=== PATIENT | female | born 1985 | race Caucasian/White ===

== ENCOUNTER 2022-01-25 11:57 | Emergency (ER) | payer BC, SELFPAY ==
[2022-01-25 12:11] VITALS: BP 126/80; PULSE 118; RESP 18; TEMP 36.3; O2SAT 98
--- NOTE | 2022-01-25 12:46 | ED.URI ---
HPI - URI/Sore Throat General Chief Complaint: Upper Respiratory Infection Stated Complaint: Sore Throat,Headache,Body Aches Time Seen by Provider: 01/25/22 12:26 Source: patient Mode of arrival: ambulatory Limitations: no limitations History of Present Illness HPI Narrative: Patient presents today complaining of fever up to 102, sore throat cough body aches chills, cough, congestion, fatigue. States any food she eats is tasting like garbage or plastic. She has been taking Mucinex some relief. States her son, who is autistic, has been sick for the last couple of days with possible COVID exposure. She has been vaccinated against COVID-19. Related Data Home Medications Medication Instructions Recorded Confirmed lamotrigine 100 mg tablet 100 mg PO DAILY 01/25/22 01/25/22 quetiapine 50 mg tablet 50 mg PO DAILY 01/25/22 01/25/22 quetiapine 50 mg tablet 50 mg PO HS 01/25/22 01/25/22 Allergies Allergy/AdvReac Type Severity Reaction Status Date / Time No Known Drug Allergies Allergy Unknown Unknown Verified 01/25/22 12:29 Review of Systems Review of Systems: CONSTITUTIONAL: Denies sweats.+ body aches, fever, chills, fatigue EYES: Denies visual changes, redness, or discharge. ENT: Denies rhinorrhea,or otalgia.+ congestion, sore throat CARDIOVASCULAR: Denies chest pain, palpitations, or edema. RESPIRATORY: Denies dyspnea.+ cough GASTROINTESTINAL: Denies abdominal pain, nausea, vomiting, or diarrhea. GENITOURINARY: Denies dysuria or hematuria. SKIN: Denies rash, itching, or wounds. MUSCULOSKELETAL: Denies back pain, joint pain, or myalgia. NEUROLOGIC: Denies headache, numbness, tingling, or weakness. PSYCH: Denies depression or anxiety. PMFSH Social History Social History Smoking status: Never smoker Alcohol intake: current Comments At time of signature, I have reviewed and agree with nursing past medical, surgical, social and family history unless otherwise noted. Please see nursing chart for further information. There is no relevant family history pertinent to the presenting complaint Exam Narrative: GENERAL: Mildly ill-appearing, well-nourished, and in no acute distress. HEAD: Normocephalic, atraumatic. EYES: EOMI. No redness or drainage. Conjunctivae normal. ENT: Mucous membranes pink and moist. Nares clear. No rhinorrhea. TMs normal bilaterally. Throat normal. Uvula midline. NECK: Normal AROM. Supple. No lymphadenopathy. CHEST: No respiratory distress. Clear to auscultation. HEART: Regular rate and rhythm. No murmur appreciated. Normal peripheral pulses. EXTREMITIES: Normal range of motion. No edema. SKIN: Warm, dry, no rash. Capillary refill normal. Normal skin turgor. NEURO: No focal deficits. Alert and oriented x3. Gait steady. PSYCH: Normal affect. No signs of depression or anxiety. Course Course Level of Care: Express Care Visit Vital Signs Vital signs: Vital Signs Temperature 97.4 F L 01/25/22 12:11 Pulse Rate 118 H 01/25/22 12:11 Respiratory Rate 18 01/25/22 12:11 Blood Pressure 126/80 01/25/22 12:11 Pulse Oximetry 98 01/25/22 12:11 Oxygen Delivery Room Air 01/25/22 12:11 Temperature 97.4 F L 01/25/22 12:11 Pulse Rate 118 H 01/25/22 12:11 Respiratory Rate 18 01/25/22 12:11 Blood Pressure 126/80 01/25/22 12:11 Pulse Oximetry 98 01/25/22 12:11 Oxygen Delivery Room Air 01/25/22 12:11 Reviewed. Pt has been instructed to follow up with her PCP regarding her elevated blood pressure today. MDM - URI/Sore Throat Differential Diagnosis Differential diagnosis: Likely upper respiratory infection, viral infection, influenza and other (Strep throat, COVID-19) Lab Data Attestation: I reviewed the patient's lab results. Lab results narrative: COVID-19 positive Labs: Influenza A Screen Negative Reference Range: Negative Influen
== END 2022-01-25 12:54 | disposition home or self-care (01) ==
PROVIDERS: Emergency Provider Nurse Practitioner; PCP Family Medicine
DX: U07.1 COVID-19 (principal); F31.9 Bipolar disorder, unspecified
CPT/HCPCS: 87081; 87147; 87426; 87804; 87880; 99213; C9803; G0463